=== PATIENT | female | born 1955 | race Two or more races ===

== ENCOUNTER 2020-07-03 15:36 | Outpatient (AMBR) | payer MEDICARE, MEDICAID, SELFPAY ==
--- NOTE | 2020-06-09 15:13 | ST.OIERPT ---
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 Kenney provided PMHx for pt. Per son, pt lives at home with him, an uncle and stepmother who is her full-time caregiver. Pt had brain aneurysm x3 in October of 2018. Pt has hx of receiving speech and physical therapy in the acute setting, SNF setting and outpatient setting. Pt's son reports pt stopped going to outpatient speech therapy because she became emotional . Pt's son reports pt typically speaks in one word phrases; family attempts to include her in family conversations at all times. Pt is dependent for ADLs. Pt was observed to initiate eye contact, pt demonstrated perseverated 1-2 word responses. Pt was cooperative throughout evaluation; she cried briefly x3, was quickly consoled by son and this therapist. Pt's son reports this is typical for pt; she cries and laughs easily. Pt's son provided information on pt's daily routines. Objective: Assessment Administered: Subtests of the Cognitive Linguistic Quick Test (CLQT) Raw Scores: Personal Facts: 0/8 Confrontation Namin/10 Story Retellin18 Auditory Comprehension: 0/10 Generative Namin/9 Cognitive Domain Score for Language: 0 Assessment: Evaluation revealed pt to present with severe aphasia characterized by deficits in receptive and expressive language. Pt's scores on the language subtests of the Cognitive Linguistic Quick Test were in the severe range. Pt's past medical history, scores on standardized assessment, and informal assessment reveal pt would benefit from speech language therapy to improve her communicative abilites required to participate in ADLs and improve safety. Short Term and Provider Network Analyst Goals Retirement Goals: Pt will use functional communication in 75% of situations when provided with customized cues and strategies by trained caregivers in order to participate in activities of daily living. Short Term Goals: 1. Pt will identify via pointing common household objects at 80% accuracy given maximum verbal and frequent maximum phonemic cues with speech therapy and family/caregiver education. 2. Pt will name common household objects at 80% accuracy given maximum verbal and visual cues with speech therapy and family/caregiver education. 3. Pt will answer yes/no questions related to safety/ADLs with 80% accuracy given max verbal and visual cues with speech therapy and family/caregiver education. 4. Pt will follow 1-step directions during functional activities with 80% accuracy given maximum verbal and visual cues with speech therapy and family/caregiver education. Plan Treatment Plan: [id number] Treatment of speech, language, voice, communication, and/or auditory processing disorder; individual Frequency and Duration: 2x/week for 5 weeks Certification Dates: 06/09/20-09/06/20
--- NOTE | 2020-06-24 16:29 | ST.ODAYNRPT ---
Office Procedures ST Evals/Treatments Date of Service ST Date of Service: 06/09/[address] Speech Eval of Prod w/Language Eval: Yes ST Outpatient Daily Note OP Daily Note Pediatric or Adult Patient: Adult PT >13 Visit Reasons: speech language defecit Outpatient Speech Therapy Treatment Date: 06/24/20 Short term goals/Tx given 1. Pt will identify via pointing common household objects at 80% accuracy given maximum verbal and frequent maximum phonemic cues with speech therapy and family/caregiver education. 2. Pt will name common household objects at 80% accuracy given maximum verbal and visual cues with speech therapy and family/caregiver education. 3. Pt will answer yes/no questions related to safety/ADLs with 80% accuracy given max verbal and visual cues with speech therapy and family/caregiver education. 4. Pt will follow 1-step directions during functional activities with 80% accuracy given maximum verbal and visual cues with speech therapy and family/caregiver education.
--- NOTE | 2020-06-24 16:45 | STNOTE_ITS ---
Office Procedures ST Evals/Treatments Date of Service ST Date of Service: 06/09/[address] Speech Eval of Prod w/Language Eval: Yes ST Procedures Date of Service Date of Service: 06/24/20 Treatments Speech Therapy Individual: Yes Outpatient Daily Note OP Daily Note Pediatric or Adult Patient: Adult PT >13 Visit Reasons: speech language defecit Outpatient Speech Therapy Treatment Date: 06/24/20 Subjective: Pt accompanied by son and stepmother, both of whom are pt's caregivers. Session was used to review goals, plan of care and build rapport. Pt was cooperative throughout session. Pt's son requested that next session be canceled d/t another appointment; plan to resume 2x/week tx Tuesday/ next week. FRONT OFFICE SPECIALIST provided handout on education regarding aphasia and HTP to practice identification of household objects at home to generalize skills in tx to home tasks (like getting dressed, eating, etc.). Objective: STG1: Pt identified photos of common household objects at 47% accuracy in a field of two given mod-max visual/gestural cues, phonemic cues and modeling. Pt required ~5 seconds to respond. Assessment: Pt demonstrates benefit from hierarchical cues to aid identification of photos of common household objects including visual/gestural cues, phonemic cues, and modeling. Pt benefited from verbal praise. Plan: Continue POC. ST Start of Care Date: 06/09/20 Short term goals/Tx given 1. Pt will identify via pointing common household objects at 80% accuracy given maximum verbal and frequent maximum phonemic cues with speech therapy and family/caregiver education. 2. Pt will name common household objects at 80% accuracy given maximum verbal and visual cues with speech therapy and family/caregiver education. 3. Pt will answer yes/no questions related to safety/ADLs with 80% accuracy given max verbal and visual cues with speech therapy and family/caregiver education. 4. Pt will follow 1-step directions during functional activities with 80% accuracy given maximum verbal and visual cues with speech therapy and family/caregiver education. Treatment Time Treatment Time (minutes): 45 minutes
--- NOTE | 2020-07-01 15:20 | ST.ODAYNRPT ---
Office Procedures ST Evals/Treatments Date of Service ST Date of Service: 06/09/[address] Speech Eval of Prod w/Language Eval: Yes ST Evals/Treatments Date of Service ST Date of Service: 07/01/[address] Speech Therapy Individual: Yes ST Procedures Date of Service ST Date of Service: 06/24/[address] Speech Therapy Individual: Yes ST Outpatient Daily Note OP Daily Note Pediatric or Adult Patient: Adult PT >13 Visit Reasons: speech language defecit Outpatient Speech Therapy Treatment Date: 06/24/20 Subjective: Pt accompanied by son and caregiver. Pt cooperative throughout session. Pt and family were given instructions, demonstration and photo book used in session and recommendation to use grocery store ads as part of home treatment plan to aid in comprehension and expression of language. Objective: STG1: Pt identified photos of household objects with 53% accuracy in a field of 2 given verbal, gestural and phonemic cues. STG2: Pt named photos of household objects with 42% accuracy given verbal, phonemic cues. Assessment: Pt demonstrates improvement in comprehension as evidenced by increase in accuracy in identification of photos of household objects. Pt demonstrates benefit from hierarchical cues to aid identification and naming of photos of common household objects including visual/gestural cues, phonemic cues, and modeling. Pt benefited from verbal praise. Plan: Continue POC. ST Start of Care Date: 06/09/20 Short term goals/Tx given 1. Pt will identify via pointing common household objects at 80% accuracy given maximum verbal and frequent maximum phonemic cues with speech therapy and family/caregiver education. 2. Pt will name common household objects at 80% accuracy given maximum verbal and visual cues with speech therapy and family/caregiver education. 3. Pt will answer yes/no questions related to safety/ADLs with 80% accuracy given max verbal and visual cues with speech therapy and family/caregiver education. 4. Pt will follow 1-step directions during functional activities with 80% accuracy given maximum verbal and visual cues with speech therapy and family/caregiver education. Treatment Time Treatment Time (minutes): 45 minutes
--- NOTE | 2020-07-03 15:51 | STNOTE_ITS ---
Office Procedures ST Evals/Treatments Date of Service ST Date of Service: 06/09/[address] Speech Eval of Prod w/Language Eval: Yes ST Evals/Treatments Date of Service ST Date of Service: 07/01/[address] Speech Therapy Individual: Yes ST Evals/Treatments Date of Service ST Date of Service: 07/03/[address] Speech Therapy Individual: Yes ST Procedures Date of Service ST Date of Service: 06/24/[address] Speech Therapy Individual: Yes ST Outpatient Daily Note OP Daily Note Pediatric or Adult Patient: Adult PT >13 Visit Reasons: speech language defecit Outpatient Speech Therapy Treatment Date: 07/03/20 Subjective: Pt accompanied by son and stepmother. Pt was cooperative throughout session. Pt's family members report follow through with HTP with photos given last session. FOOD SCIENTIST requested family bring coupons from a restaurant that pt likes to eat at so that may be used as functional stimuli to target receptive and expressive language targets. Objective: STG1: Pt identified objects in tx room given gestural and verbal cues. STG2: Pt named photos with 45% accuracy given verbal, visual, gestural cues and modeling. Pt named pictures in both Marshallese and [place] Korean. New stimuli included verbs in this session. Assessment: Pt continues to demonstrate benefit from verbal cues including semantic and phonemic cues. Pt benefit from gestural cues including pointing. Pt demonstrated a decrease in accuracy given new verb targets. Pt benefits from cues in Marshallese and [place] Korean; consistent with how she communicates at home. Plan: Continue POC; use functional stimuli (resturant coupons) to further target goals. ST Start of Care Date: 06/09/20 Short term goals/Tx given 1. Pt will identify via pointing common household objects at 80% accuracy given maximum verbal and frequent maximum phonemic cues with speech therapy and family/caregiver education. 2. Pt will name common household objects at 80% accuracy given maximum verbal and visual cues with speech therapy and family/caregiver education. 3. Pt will answer yes/no questions related to safety/ADLs with 80% accuracy given max verbal and visual cues with speech therapy and family/caregiver education. 4. Pt will follow 1-step directions during functional activities with 80% accuracy given maximum verbal and visual cues with speech therapy and family/caregiver education. Treatment Time Treatment Time (minutes): 45 minutes
== END 2020-07-06 23:59 | disposition home or self-care (01) ==
PROVIDERS: PCP Physician Assistant; Referring Provider Physician Assistant; Visit Provider Physician Assistant
DX: I67.1 Cerebral aneurysm, nonruptured (principal); R47.01 Aphasia; I69.328 Other speech and language deficits following cerebral infarction; Z72.89 Other problems related to lifestyle; M54.15 Radiculopathy, thoracolumbar region; M54.5 Low back pain
CPT/HCPCS: 92507; 92523

== ENCOUNTER 2020-07-29 15:48 | Outpatient (AMBR) | payer MEDICARE, MEDICAID, SELFPAY ==
--- NOTE | 2020-07-08 17:58 | STNOTE_ITS ---
Office Procedures ST Evals/Treatments Date of Service ST Date of Service: 07/10/[address] Speech Therapy Individual: Yes ST Outpatient Daily Note OP Daily Note Pediatric or Adult Patient: Adult PT >13 Visit Reasons: speech language defecit Outpatient Speech Therapy Treatment Date: 07/03/20 Subjective: Pt accompanied by son and step-mom. Pt cooperative throughout evaluation. Pt's family report follow-thorough with HTP recommendations. HOBBIES AND CRAFTS SALES REPRESENTATIVE requested that family bring in pt's ipad from home to incorporate more activities of daily living in tx sessions; they agreed. Objective: STG2: Pt named photos of household objects/body parts/ADL nouns with 53% accuracy given phonemic cues and visual cues. Pt demonstrated 0% accuracy given verbal cue ( what is this called ) and semantic cue (description of use of object). Stimuli used were photos against white background and functional menus brought in my pt's family. STG4: Pt followed one step directions with 60% accuracy given verbal and gestural cues. *HOBBIES AND CRAFTS SALES REPRESENTATIVE provided education to family regarding forms of cues. HOBBIES AND CRAFTS SALES REPRESENTATIVE explained importance of using prompt what is this called/what is the name of this? versus what is this? in order to acknowledge that the pt knows what the thing/ photo is, however it is a matter of finding and saying the word that she is looking for. Assessment: Pt demonstrated improvement in expressive language as evidenced by increase in accuracy in naming objects. Pt demonstrates the most benefit from phonemic cues to aid in word finding compared with semantic cues. Plan: Continue POC. ST Start of Care Date: 06/09/20 Treatment Time Treatment Time (minutes): [address] Evals/Treatments Date of Service ST Date of Service: 07/08/[address] Speech Therapy Individual: Yes
--- NOTE | 2020-07-10 16:19 | ST.ODAYNRPT ---
Office Procedures ST Evals/Treatments Date of Service ST Date of Service: 07/10/[address] Speech Therapy Individual: Yes ST Outpatient Daily Note OP Daily Note Pediatric or Adult Patient: Adult PT >13 Visit Reasons: speech language defecit Outpatient Speech Therapy Treatment Date: 07/03/20 Subjective: Pt accompanied by son. Pt and son brought in booklet with photos of foods taken from newspaper ads to use as stimuli in session and pt's own iPad. Pt's son reports follow through with home recommendations. Objective: STG2: Pt named photos of foods with 50% accuracy given phonemic cues and visual cues. Pt demonstrated 0% accuracy given verbal cue ( what is this called ). Pt repeated words given model x1 in 90% of opportunities. STG4: Pt followed one step directions with 60% accuracy given verbal and gestural cues. Ipad was used as stimuli i/e open ipad , push button PORTRAIT PHOTOGRAPHER provided education to pt and son regarding skill generalization versus memorization of targets in therapy; he verbalized understanding. PORTRAIT PHOTOGRAPHER provided education on how to adjust settings of ipad including making icons/text bigger and categorizing apps . Assessment: Pt continues to benefit from phonemic cues to produce target word in confrontational naming tasks. Pt's naming errors are characterized by both phonemic and semantic errors. Pt benefits from repetition and visual/gestural cues to follow directions. Plan: Continue with POC ST Start of Care Date: 06/09/20 Treatment Time Treatment Time (minutes): 45 minutes
--- NOTE | 2020-07-14 16:39 | STNOTE_ITS ---
Office Procedures ST Evals/Treatments Date of Service ST Date of Service: 07/14/[address] Speech Therapy Individual: Yes ST Evals/Treatments Date of Service ST Date of Service: 07/10/20 ST Treatments Speech Therapy Individual: Yes ST Outpatient Daily Note OP Daily Note Pediatric or Adult Patient: Adult PT >13 Visit Reasons: speech language defecit Outpatient Speech Therapy Treatment Date: 07/14/20 Subjective: Pt accompanied by son and stepmother. Pt was cooperative throughout session. Family members reports follow through with HTP. Pt's stepmother informed this therapist that it took her an hour to figure out what the pt wanted after asking for two of something by using a gesture (number two with her fingers). The pt was trying to ask for two tylenol; eventually took stepmother to the box where they keep medicines. This therapist suggested they keep the tylenol in that box too with the other medicines. Objective: Pt named photos of verbs with 50% accuracy given verbal and phonemic cues. Pt benefitted from visual cues and modeling in most attempts to repeat words. Pt followed basic one-step commands with 60% accuracy given verbal, visual and gestural cues. Assessment: Pt continues to present with naming deficits; errors are characteri zed by both semantic and phonemic paraphasias. Pt benefits from phonemic cues; demonstrates more benefit from semantic cues with verbs compared to nouns. Pt continues to demonstrate communication breakdowns at home, as described by her family members; they benefitted from education to provide some modifications to the environment. Plan: Continue poc, target safety questions next session. ST Start of Care Date: 06/09/20 Treatment Time Treatment Time (minutes): 45 minutes
--- NOTE | 2020-07-22 16:24 | ST.ODAYNRPT ---
Office Procedures ST Evals/Treatments Date of Service ST Date of Service: 07/14/[address] Speech Therapy Individual: Yes ST Evals/Treatments Date of Service ST Date of Service: 07/10/[address] Speech Therapy Individual: Yes ST Evals/Treatments Date of Service ST Date of Service: 07/22/[address] Speech Therapy Individual: Yes ST Outpatient Daily Note OP Daily Note Pediatric or Adult Patient: Adult PT >13 Visit Reasons: speech language defecit Outpatient Speech Therapy Treatment Date: 07/14/20 Subjective: Pt accompanied by caregiver, Radha and sister, Chandrika. Pt was cooperative throughout session. Radha reports follow-through with HTP, spoke at length regarding practicing one-step directions and naming pictures and objects during ADLs. COMMERCIAL FIELD INSPECTOR gave family worksheet to practice one-step directions and answered all questions. COMMERCIAL FIELD INSPECTOR reviewed goals with pt, caregiver and pt's sister. Objective: STG1: Pt identified photos of common objects (food, clothing, household objects) with 70% accuracy given mod verbal cues and gestural cues. STG2: Pt named photos of common objects (same stimuli used for STG1) with 67% accuracy given mod verbal cues. STG3: Pt answered 1/3 yes/no questions related to safety given min cues. STG4: Pt followed one-step questions with 60% accuracy given mod verbal and gestural cues. Assessment: Pt demonstrates improvement in receptive and expressive language skills as evidenced by increase in accuracy in identifying and naming photos of common objects. Pt benefits from phonemic cues to produce target word in confrontational naming tasks. Plan: Continue POC. ST Start of Care Date: 06/09/20 Treatment Time Treatment Time (minutes): 60 minutes
--- NOTE | 2020-07-24 16:11 | STNOTE_ITS ---
Office Procedures ST Evals/Treatments Date of Service ST Date of Service: 07/14/[address] Speech Therapy Individual: Yes ST Evals/Treatments Date of Service ST Date of Service: 07/10/[address] Speech Therapy Individual: Yes ST Evals/Treatments Date of Service ST Date of Service: 07/22/[address] Speech Therapy Individual: Yes ST Evals/Treatments Date of Service ST Date of Service: 07/24/[address] Speech Therapy Individual: Yes ST Outpatient Daily Note OP Daily Note Pediatric or Adult Patient: Adult PT >13 Visit Reasons: speech language defecit Outpatient Speech Therapy Treatment Date: 07/14/20 Subjective: Pt accompanied by sisterChandrika and caregiver Radha. Pt coope rative throughout session. OUTBOUND TELEMARKETING REPRESENTATIVE gave pt and family education regarding aphasia diagnosis, booklet from [employer] with information regarding tips communicating with a person with aphasia and OUTBOUND TELEMARKETING REPRESENTATIVE gave HTP. Goals and progress also reviewed with family. Objective: STG1:Pt identified common household objects, foods, clothing with 70% accuracy given visual/gestural and semantic cues. STG2: Pt named common household objects, foods, clothing with 50% accuracy given visual/gestural, semantic and phonemic cues. STG3: Pt followed one step directions during therapy session (give me card, sit down, look, repeat, etc.) with ~80% accuracy given visual/gestural and verbal cues. *Pt demonstrated some in tact automatic language: pt counted to ten, sang happy birthday and recited ~half of alphabet. Assessment: Pt continues to benefit from phonemic, semantic, and visual/gestural cues to aid in both receptive and expressive language tasks related to ADLs. Pt's family support contributes to pt's good response to tx. Pt benefits from verbal praise. Stimuli used in this session were photos on computer screen and photo cards placed on table in front of pt. Plan: Continue poc. ST Start of Care Date: 06/09/20 Treatment Time Treatment Time (minutes): 45 minutes
--- NOTE | 2020-07-29 16:27 | ST.ODAYNRPT ---
Office Procedures ST Evals/Treatments Date of Service ST Date of Service: 07/14/[address] Speech Therapy Individual: Yes ST Evals/Treatments Date of Service ST Date of Service: 07/10/[address] Speech Therapy Individual: Yes ST Evals/Treatments Date of Service ST Date of Service: 07/22/[address] Speech Therapy Individual: Yes ST Evals/Treatments Date of Service ST Date of Service: 07/24/[address] Speech Therapy Individual: Yes ST Evals/Treatments Date of Service ST Date of Service: 07/29/[address] Speech Therapy Individual: Yes ST Outpatient Daily Note OP Daily Note Pediatric or Adult Patient: Adult PT >13 Visit Reasons: speech language defecit Outpatient Speech Therapy Treatment Date: 07/14/20 Subjective: Pt accompanied by son, Kenney and caregiver, Radha. Pt was cooperative throughout session. Kenney and Radha report follow-through with home treatment recommendations. Kenney and Radha report they see improvement in pt's attempts at initiation of speech, improvement in identifying items to make choices, more attempts at repeating words and phrases. They also report that pt demonstrates improvement in spontaneous speech; they described a specific instance that happened today in which Kenney was driving and did not see people about to cross the street and Laly said stop! to warn him. Kenney and Radha report this is an improvement in her attention and expressive language. Objective: STG1: Pt identified photos of objects (food, household items, clothing) with 70% given mod verbal (semantic) cues. STG2: Pt named photos of objects (food, household items, clothing) with 50% accuracy given mod verbal cues and visual cues. STG3: Pt answered yes/no questions with 50% accuracy given mod verbal cues. STG4: Pt followed simple one-step directions with 60% accuracy given mod verbal cues. Assessment: Pt demonstrates improvement in both receptive and expressive language. Pt benefits from a verbal cues including semantic, phonemic cues. Pt also benefits from tactile cues to produce target words in confrontational naming tasks. Pt's family reports they see improvement in pt's language skills at home which has helped her increase her participation in socializing with family and improved her safety. Pt would benefit from continued speech therapy to address safety and quality of life. Plan: Request continued treatment from PCP. Start of Care Date: 06/09/20 Treatment Time Treatment Time (minutes): 60 minutes
--- NOTE | 2020-07-29 16:48 | STNOTE_ITS ---
Office Procedures ST Evals/Treatments Date of Service ST Date of Service: 07/14/[address] Speech Therapy Individual: Yes ST Evals/Treatments Date of Service ST Date of Service: 07/10/[address] Speech Therapy Individual: Yes ST Evals/Treatments Date of Service ST Date of Service: 07/22/[address] Speech Therapy Individual: Yes ST Evals/Treatments Date of Service ST Date of Service: 07/24/[address] Speech Therapy Individual: Yes ST Evals/Treatments Date of Service ST Date of Service: 07/29/[address] Speech Therapy Individual: Yes ST OP Progress/Discharge Note Patient Information Pediatric or Adult Patient: Adult PT >13 Visit Reasons: speech language defecit Medical Diagnosis: I72.9 Problem related to lifestyle; 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 Pt was cooperative throughout session. Chitra report follow-through with home treatment recommendations. Chitra report they see improvement in pt's attempts at initiation of speech, improvement in identifying items to make choices, more attempts at repeating words and phrases. They also report that pt demonstrates improvement in spontaneous speech; they described a specific inst ance that happened today in which Kenney was driving and did not see people about to cross the street and Laly said stop! to warn him. Kenney jonathan Radha report this is an improvement in her attention and expressive language. Objective: STG1: Pt identified photos of objects (food, household items, clothing) with 70% given mod verbal (semantic) cues. STG2: Pt named photos of objects (food, household items, clothing) with 50% accuracy given mod verbal cues and visual/tactile cues (tapping table with hand for each syllable to produce word). STG3: Pt answered yes/no questions with 50% accuracy given mod verbal cues. STG4: Pt followed simple one-step directions with 60% accuracy given mod verbal cues. Assessment: Pt demonstrates improvement in both receptive and expressive language as evidenced by increase in accuracy in identification of ADL objects, following directions, and in confrontational naming tasks. Pt benefits from a verbal cues including semantic, phonemic cues. Pt also benefits from tactile cues to produce target words in confrontational naming tasks. Pt's family rep orts they see improvement in pt's language skills at home which has helped her increase her participation in socializing with family and improved her safety. Pt's family report compliance with home treatment recomemendations and demonstrate consistent attendance to sessions. Pt would benefit from continued speech therapy to address safety and quality of life. Recommend 10 additional visits (2x/week for 5 weeks).
--- NOTE | 2020-09-24 16:43 | ST.DCSUMMARY ---
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 Evaluation and Other (speech treatment ) D/C Status: Increased expressive language (In context of confrontational naming tasks ) Assessment: Patient is:: Cooperative/Motivated and Requires encouragement Patient's progress toward establishing goals:: Fair Reason for Discharge:: Discharge to Rehab. (Pt approved for home health services ) Office Procedures ST Evals/Treatments Date of Service ST Date of Service: 07/14/[address] Speech Therapy Individual: Yes ST Evals/Treatments Date of Service ST Date of Service: 07/10/[address] Speech Therapy Individual: Yes ST Evals/Treatments Date of Service ST Date of Service: 07/22/[address] Speech Therapy Individual: Yes ST Evals/Treatments Date of Service ST Date of Service: 07/24/[address] Speech Therapy Individual: Yes ST Evals/Treatments Date of Service ST Date of Service: 07/29/[address] Speech Therapy Individual: Yes
== END 2020-08-06 23:59 | disposition home or self-care (01) ==
PROVIDERS: PCP Physician Assistant; Referring Provider Physician Assistant; Visit Provider Physician Assistant
DX: I69.328 Other speech and language deficits following cerebral infarction (principal); I69.320 Aphasia following cerebral infarction; M54.15 Radiculopathy, thoracolumbar region; M54.5 Low back pain
CPT/HCPCS: 92507

== ENCOUNTER 2024-04-07 14:34 | Emergency (ER) | payer MEDICARE, MEDICAID, SELFPAY ==
[2024-04-07 14:46] VITALS: BP 129/77; PULSE 82; RESP 18; TEMP 36.9; O2SAT 96; BMI 37.5
--- NOTE | 2024-04-07 14:52 | PD.EDRME ---
Rapid Medical Screening Exam E Arrival date/time: 04/07/24 14:34 68-year-old female with past medical history of hypertension presents emergency department complaining of dysuria and subjective fevers. Chief Complaint: Urogenital-Female Vital signs: Vital Signs Temperature 98.5 F 04/07/24 14:46 Pulse Rate 82 04/07/24 14:46 Respiratory Rate 18 04/07/24 14:46 Blood Pressure 129/77 04/07/24 14:46 Pulse Oximetry (%) 96 04/07/24 14:46 Oxygen Delivery Method Room Air 04/07/24 14:46 Vital signs reviewed by provider: Yes
[2024-04-07 15:36] LABS: Collection Type, Urine Clean Catch
[2024-04-07 16:10] LABS: Bacteria,Urine Rare; Bilirubin,Urine Negative (Negative); Blood,Urine Negative (Negative); Clarity,Urine Clear (Clear/Hazy); Color,Urine Lt-Yellow (Lt Yel-Yel); Culture Indicated,Urine Not Indicated; Glucose, Urine Negative (Negative); Ketones,Urine Negative (Negative); Leukocyte Esterase,Urine Negative (Negative); Nitrite,Urine Negative (Negative); Protein,Urine Negative (Neg - Trace); RBC,Urine 3 /hpf (0-3); Specific Gravity,Urine 1.016 (1.001-1.035); Squamous Epithelial Cell,Urine 5 /hpf (0-5); Urobilinogen,Urine Negative mg/dL (0.0-1.0); WBC,Urine 3 /hpf (0-5)
[2024-04-07 16:21] LABS: Basophils # (Auto) 0.1 Thou/mm3 (0.0-0.2); Basophils % (Auto) 1 % (0-2.5); Eosinophils # (Auto) 0.1 Thou/mm3 (0.0-0.5); Eosinophils % (Auto) 1 % (0-10); Hematocrit 39.8 % (36.0-46.0); Hemoglobin 12.6 g/dL (12.0-16.0); Immature Granulocytes % (Auto) 0 % (0-0); Immature Granulocytes Auto 0.02 Thou/mm3 (0.00-0.00); Lymphocytes # (Auto) 2.2 Thou/mm3 (1.0-4.8); Lymphocytes % (Auto) 31 % (10-50); Mean Corpuscular HGB Conc 31.7 g/dl (31.0-37.0); Mean Corpuscular Hemoglobin 26.7 pg (25.0-35.0); Mean Corpuscular Volume 84 fL (80-100); Monocytes # (Auto) 0.4 Thou/mm3 (0.0-0.8); Monocytes % (Auto) 6 % (0-12); Neutrophils # (Auto) 4.4 Thou/mm3 (1.8-7.7); Neutrophils % (Auto) 62 % (37-80); Nucleated Red Blood Cell % 0 /100 WBC (0); Platelet Count 409 Thou/mm3 (140-440); RDW Standard Deviation 43.5 fL (36.4-46.3); Red Blood Count 4.72 Miln/mm3 (4.00-5.20); White Blood Count 7.2 Thou/mm3 (3.6-11.0)
[2024-04-07 16:40] LABS: Alanine Aminotransferase 48 U/L (10-49); Albumin/Globulin Ratio 1.9 (1.2-2.2); Alkaline Phosphatase 137 U/L (46-116); Anion Gap 10 (7-16); Aspartate Amino Transferase 73 U/L (0-34); BUN/Creatinine Ratio 23 Ratio (12-20); Bilirubin,Total 0.6 mg/dL (0.3-1.2); Blood Urea Nitrogen 14 mg/dL (9-23); Calcium 10.4 mg/dL (8.3-10.6); Calcium (Corrected) 10.4 mg/dL (8.5-10.1); Carbon Dioxide 22.6 mMol/L (20.0-31.0); Chloride 105 mMol/L (98-107); Creatinine (Component) 0.6 mg/dL (0.6-1.3); Globulin 2.6 gm/dL (2.3-3.5); Glucose 122 mg/dL (74-106); Osmolality,Calculated 277 (275-295); Potassium 4.4 mMol/L (3.4-5.1); Sodium 138 mMol/L (136-145); Total Protein 7.6 gm/dL (5.7-8.2); eGFR > 60 See Note
[2024-04-07 19:25] VITALS: BP 143/81; PULSE 91; RESP 16; TEMP 37.1; O2SAT 97
--- NOTE | 2024-04-07 19:29 | EDNOTE_ITS ---
<Statement entered by Emeli Antonio MD - 04/07/24 22:01> As co-signing physician, I was present and available for consult prn. I concur with the plan and care as documented by the midlevel provider. ED Female Urogenital RME/HPI General Chief complaint: Urogenital-Female Stated complaint: UTI SYMPTOMS X YESTERDAY; FEVER PAIN Time Seen by Provider: 04/07/24 19:22 Arrival date/time: 04/07/24 14:34 RME / HPI RME / HPI Narrative: 68-year-old female with past medical history of hypertension presents emergency department complaining of dysuria and subjective fevers. Onset of symptoms since yesterday severity of symptoms mild. On my initial evaluation patient is afebrile. And denies any dysuria or discomfort in the pelvic area. Denies any cough denies any abdominal pain also. Related Data Home Medications ?Medication ?Instructions ?Recorded ?Confirmed cholecalciferol (vitamin D3) 125 125 mcg PO QDAY 10/14/21 03/07/24 mcg (5,000 unit) tablet (Vitamin D3) gemfibrozil 600 mg tablet 600 mg PO BID 10/14/21 03/07/24 lisinopril 20 mg tablet 20 mg PO QDAY 10/14/21 03/07/24 pantoprazole 40 mg tablet,delayed 40 mg PO QDAY 10/14/21 03/07/24 release tramadol 50 mg tablet 50 mg PO BID PRN Pain 10/14/21 03/07/24 docusate sodium 100 mg capsule 100 mg PO PRN PRN Constipation 04/20/23 03/07/24 albuterol sulfate 90 mcg/actuation 1 inh inhalation QID PRN Shortness 03/06/24 03/07/24 aerosol inhaler Of Breath Or Wheezing melatonin 5 mg tablet 5 mg PO HS PRN Insomnia 03/06/24 03/07/24 naproxen 500 mg tablet (Naprosyn) 500 mg PO BID PRN Pain 03/06/24 03/07/24 Previous Rx's ?Medication ?Instructions ?Recorded ibuprofen 600 mg tablet 600 mg PO Q6H PRN pain #30 tabs 03/07/24 oxycodone-acetaminophen 5 mg-325 1 tab PO Q6H PRN pain #30 tabs 03/07/24 mg tablet (Percocet) ciprofloxacin HCl 500 mg tablet 500 mg PO BID #20 tabs 03/11/24 (Cipro) hydrocortisone 2.5 % topical cream 1 applic TN QDAY PRN pain #30 grams 03/20/24 with perineal applicator (Procto-Med HC) oxycodone-acetaminophen 5 mg-325 1 tab PO Q6H PRN pain #30 tabs 03/20/24 mg tablet (Percocet) Allergies Allergy/AdvReac Type Severity Reaction Status Date / Time ceftriaxone Allergy Severe RASH,JITTER Verified 04/07/24 14:36 Y Cephalosporins Allergy Severe Rash Verified 04/07/24 14:36 erythromycin base Allergy Severe Rash Verified 04/07/24 14:36 levofloxacin Allergy Severe Anaphylaxis Verified 04/07/24 14:36 lovastatin Allergy Severe WHEEZING Verified 04/07/24 14:36 Penicillins Allergy Severe Swelling Verified 04/07/24 14:36 of Lip/Tongue/Throat shellfish derived Allergy Severe Swelling Verified 04/07/24 14:36 of Lip/Tongue/Throat Sulfa (Sulfonamide Allergy Severe SWELLING Verified 04/07/24 14:36 Antibiotics) TONGUE Tetracyclines Allergy Severe RASH,SWELLING Verified 04/07/24 14:36 THROAT & TONGUE trimethoprim Allergy Severe SWELLING Verified 04/07/24 14:36 TONGUE RASH LEVAQUIN Allergy Uncoded 04/07/24 14:36 Review of Systems Review of Systems Narrative Review of Systems: Review of system reviewed and within normal limits except mentioned in HPI ED Exam Narrative Physical exam: VITAL SIGNS: Reviewed. GENERAL APPEARANCE: Alert and interactive, follows commands, no acute distress, HEAD AND FACE: Non-traumatic. ENT: PERRL, pink conjunctivitis, eyelid no trauma, Mucous membrane moist. NECK: Supple, nontender, no nuchal rigidity. CHEST: No tenderness, no crepitus, no paradoxical movement, no retractions. LUNGS: Clear, well ventilated, symmetric, no rales, no wheezing, no ronchi, no stridor, good breath sounds bilaterally. HEART: Regular rate, regular rhythm, no murmur, no gallops. ABDOMEN: Soft, positive bowel sounds, nondistended, no guarding, nontender, no rebound, no masses, RECTAL: Deferred. GENITAL: Deferred. NEUROLOGICAL: Gross motor function intact sensory function intact, Appropriate for age. MUSCULOSKELETAL: low back nontender, full range of motion. EXTREMITIES: Nontender, full range of motion. SKIN: Color pink, dry, no rash, no lacerations, no abrasions, no contusions. LYMPHATICS: Deferred. Course Quality Measures none Orders Category Date Time Status CBC Stat Lab 04/07/24 15:52 Completed CMP [Comprehensive Metabolic Panel] Stat Lab 04/07/24 15:52 Completed Urinalysis, C/S if Indicated Stat Lab 04/07/24 15:25 Completed Vital Signs Vital signs: Vital Signs Temperature 98.5 F 04/07/24 14:46 Pulse Rate 82 04/07/24 14:46 Respiratory Rate 18 04/07/24 14:46 Blood Pressure 129/77 04/07/24 14:46 Pulse Oximetry (%) 96 04/07/24 14:46 Oxygen Delivery Method Room Air 04/07/24 14:46 Urogenital - Female MDM Narrative MDM Narrative:: 68-year-old female with past medical history of hypertension presents emergency department complaining of dysuria and subjective fevers. Onset of symptoms since yesterday severity of symptoms mild. On my initial evaluation patient is afebrile. And denies any dysuria or discomfort in the pelvic area. Denies any cough denies any abdominal pain also. Laboratory workup all came back unremarkable no UTI noted. Labs are normal. Patient data External records reviewed:: None Clinical information provided by:: none Social determinants that could affect healthcare access:: none Patient has the following chronic illnesses:: Dementia How is presenting disease/condition affected by chronic disease/condition?: uneffected by Evaluation data The following diagnostics were reviewed and interpreted by me:: lab results Lab and/or radiology exams considered but not ordered:: None Interpretation Summary: Laboratory workup came back unremarkable. No UTI Medications / Prescriptions Medications or Prescriptions considered but not ordered:: None Medication administrations:: None Consultations Consultation(s) initiated? (list below): No Diagnosis Urogenital Female Differential Diagnosis: urinary tract infection, vaginitis, cystitis and other (Dysuria) Most likely diagnosis given after review of the tests above:: Dysuria Admission Indicated Admission indicated?: not indicated Explain why admission is indicated or not indicated:: Stable Admission Request Was there a request for admission?: No Disposition Plan Disposition Plan: Discharge Discharge Attestation Discharge Attestation: The patient and all family members were given an opportunity to ask questions and understood the discharge instructions. Discharge instructions specifically effects, indications for sooner follow up or return to the emergency department, and the expected course of current diagnosis. Patient condition: Stable Discharge Plan Plan Patient Disposition: HOME (Self Care) Disposition Comment: stable Prescriptions/Referrals Prescriptions/Med Rec: No Action lisinopril 20 mg Tablet 20 mg PO QDAY tramadol 50 mg tablet 50 mg PO BID PRN (Reason: Pain) Hold Instructions: Resume on 12/17/22. Patient Comments: TAKE ONE TABLET BY MOUTH TWICE DAILY NEEDED FOR PAIN gemfibrozil 600 mg Tablet 600 mg PO BID pantoprazole 40 mg Tablet,Delayed Release (Dr/Ec) 40 mg PO QDAY cholecalciferol (vitamin D3) [Vitamin D3] 125 mcg (5,000 unit) Tablet 125 mcg PO QDAY ciprofloxacin HCl [Cipro] 500 mg tablet 500 mg PO BID Qty: 20 0RF Rx Instructions: Patient has taken this patient has not had allergic reaction to it in the past. oxycodone-acetaminophen [Percocet] 5-325 mg tablet 1 tab PO Q6H MDD 6 tabs PRN (Reason: pain) Qty: 30 0RF hydrocortisone [Procto-Med HC] 2.5 % cream with perineal applicator 1 applic TN QDAY PRN (Reason: pain) Qty: 30 0RF docusate sodium 100 mg capsule 100 mg PO PRN PRN (Reason: Constipation) Patient Comments: TAKE ONE CAPSULE BY MOUTH TWICE DAILY FOR CONSTIPATION albuterol sulfate 90 mcg/actuation Hfa Aerosol Inhaler 1 inh INHALATION QID PRN (Reason: Shortness Of Breath Or Wheezing) naproxen [Naprosyn] 500 mg Tablet 500 mg PO BID PRN (Reason: Pain) melatonin 5 mg Tablet 5 mg PO HS PRN (Reason: Insomnia) oxycodone-acetaminophen [Percocet] 5-325 mg tablet 1 tab PO Q6H MDD 6 tabs PRN (Reason: pain) Qty: 30 0RF ibuprofen 600 mg tablet 600 mg PO Q6H PRN (Reason: pain) Qty: 30 0RF Referrals: Ophelia Chaidez PA-C [Primary Care Provider] - In 1 week Problem List Clinical Impression: Dysuria Patient/Caregiver Discharge Instructions Discharge Activity: activity as tolerated Education Materials: ED Dysuria, Uncertain Cause (Adult) Additional Instructions: Thank you for the opportunity for serving you today. You are stable for discharged . You are advised to: Follow-up with your PCP in 1 to 2 days Return to ED for worsening of symptoms Increase oral fluids Avoid drinking sodas Print Language: Tamazight Stand Alone Forms: Alexandra Award Info., Patient Portal Info Letter PA/REMOTE SENSING SCIENTIST Supervising Physician PA/REMOTE SENSING SCIENTIST Supervising Physician: MD Paco
== END 2024-04-07 19:45 | disposition home or self-care (01) ==
PROVIDERS: Emergency Provider Emergency Medicine; PCP Physician Assistant
DX: R30.0 Dysuria (principal); R50.9 Fever, unspecified; I10 Essential (primary) hypertension
CPT/HCPCS: 36415; 80053; 81001; 85025; 99283

== ENCOUNTER 2024-04-09 15:10 | Outpatient (AMB) | payer MEDICARE, MEDICAID, SELFPAY ==
[2024-04-09 15:19] VITALS: BP 131/82; PULSE 100; RESP 18; TEMP 35.4; O2SAT 95; BMI 36.9
--- NOTE | 2024-04-09 15:19 | GSCOFFNT_ITS ---
Vital Signs - [facility] 04/09/24 15:19 Height 1.7 m Height Method Stated Weight 106.764 kg Weight Measurement Method Standing Scale BMI 36.9 BP 131/82 H Blood Pressure Source Automatic Cuff Blood Pressure Location Left Upper Arm Position Sitting Respiration 18 Pulse 100 Pulse Source Monitor Temp 95.8 F L Temp Source Temporal Artery Scan Pulse Oximetry (%) 95 Oxygen Delivery Method Room Air Med/Allergies Allergies & Medications Allergies ceftriaxone Allergy (Severe, Verified 04/09/24 15:20) RASH,JITTERY Cephalosporins Allergy (Severe, Verified 04/09/24 15:20) Rash erythromycin base Allergy (Severe, Verified 04/09/24 15:20) Rash levofloxacin Allergy (Severe, Verified 04/09/24 15:20) Anaphylaxis lovastatin Allergy (Severe, Verified 04/09/24 15:20) WHEEZING Penicillins Allergy (Severe, Verified 04/09/24 15:20) Swelling of Lip/Tongue/Throat shellfish derived Allergy (Severe, Verified 04/09/24 15:20) Swelling of Lip/Tongue/Throat Sulfa (Sulfonamide Antibiotics) Allergy (Severe, Verified 04/09/24 15:20) SWELLING TONGUE Tetracyclines Allergy (Severe, Verified 04/09/24 15:20) RASH,SWELLING THROAT & TONGUE trimethoprim Allergy (Severe, Verified 04/09/24 15:20) SWELLING TONGUE RASH LEVAQUIN Allergy (Uncoded 04/09/24 15:20) Medication Reconciliation cholecalciferol (vitamin D3) 125 mcg (5,000 unit) tablet (Vitamin D3) 125 mcg PO QDAY 10/14/21 [History Confirmed 04/09/24] gemfibrozil 600 mg tablet 600 mg PO BID 10/14/21 [History Confirmed 04/09/24] lisinopril 20 mg tablet 20 mg PO QDAY 10/14/21 [History Confirmed 04/09/24] pantoprazole 40 mg tablet,delayed release 40 mg PO QDAY 10/14/21 [History Confirmed 04/09/24] tramadol 50 mg tablet 50 mg PO BID PRN Pain 10/14/21 [History Confirmed 04/09/24] docusate sodium 100 mg capsule 100 mg PO PRN PRN Constipation 04/20/23 [History Confirmed 04/09/24] albuterol sulfate 90 mcg/actuation aerosol inhaler 1 inh inhalation QID PRN Shortness Of Breath Or Wheezing 03/06/24 [History Confirmed 04/09/24] melatonin 5 mg tablet 5 mg PO HS PRN Insomnia 03/06/24 [History Confirmed 04/09/24] naproxen 500 mg tablet (Naprosyn) 500 mg PO BID PRN Pain 03/06/24 [History Confirmed 04/09/24] ibuprofen 600 mg tablet 600 mg PO Q6H PRN pain #30 tabs 03/07/24 [Rx Confirmed 04/09/24] oxycodone-acetaminophen 5 mg-325 mg tablet (Percocet) 1 tab PO Q6H PRN pain #30 tabs 03/07/24 [Rx Confirmed 04/09/24] ciprofloxacin HCl 500 mg tablet (Cipro) 500 mg PO BID #20 tabs 03/11/24 [Rx Confirmed 04/09/24] hydrocortisone 2.5 % topical cream with perineal applicator (Procto-Med HC) 1 applic RI QDAY PRN pain #30 grams 03/20/24 [Rx Confirmed 04/09/24] oxycodone-acetaminophen 5 mg-325 mg tablet (Percocet) 1 tab PO Q6H PRN pain #30 tabs 03/20/24 [Rx Confirmed 04/09/24] hydrocortisone 2.5 % topical cream with perineal applicator 1 applic RI QD-BID PRN hemorrhoids #30 grams 04/09/24 [Rx] MA Intake Visit Data Collection New Patient or Established: Established Patient (seen at [facility] within 3 years) Seen by Clinical Staff ONLY (RN/MA): No Reason for Visit:: FOLLOW UP Pain Present Currently: No 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: No PCP or OBGYN visit in last 3 months: Yes Hx Now: No Do You Feel Safe at Home: Yes Authorities Contacted: N/A Smoking Status Smoking Status: Never smoker Immunization / Flu Flu Vaccine in the Last 12 Months: No Flu Vaccine Exclusion Criteria: No Exclusion Criteria Past Medical History Past Medical History NEUROLOGIC: Positive Neurological Disorders (Sees Dr Fernandez), Cerebrovascular Accident (from aneurysm, has aphasia) and Subdural Hematoma (aneurysim x3, 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); Negative Seizures CARDIAC: Positive Atherosclerotic Heart Disease, Hypercholesterolemia, Aneurysm (brain x3 sites) and Hypertension; Negative Cardiac Disorders or Congestive Heart Failure RESPIRATORY: Negative Chronic Obstructive Pulmonary Disease (COPD), Asthma or Sleep Apnea GASTROINTESTINAL: Positive Gastrointestinal Disorders, Hemorrhoids and Obesity; Negative Liver Cancer or Pancreatic Cancer GENITOURINARY: Negative Genitourinary Disorders or Renal Disease REPRODUCTIVE: Positive Previous Pregnancies ENT: Negative Cataracts ENDOCRINE: Negative Endocrine Disorders, Diabetes Mellitus Type 1 or Diabetes Mellitus Type 2 HEMATOLOGIC: Negative Blood Disorders or Sickle Cell Disease OTHER HISTORY: Positive Hospitalization, Blood Transfusions, Chicken Pox and Measles; Negative Autoimmune Disease, Shingles, Falls, Blood Transfusion Reaction, Anesthesia Reactions, Mumps or Cancer Family History FAMILY HISTORY: Positive Family Cancer and Family Surgery; Negative Family Psychiatric Problems, Family Respiratory Disorders, Family Cardiac Disorders, Family Gastrointestinal Problems or Family Anesthesia Reaction Surgical History SURGICAL: Positive Cardiac Surgery, Carotid Endarterectomy (Bilateral) and Neurologic Surgery (ruptured brain aneurysm, has one clip and plate) Social History SMOKING STATUS: Smoking status: Never smoker ALCOHOL: Alcohol Intake: Never HOUSING: Housing: House LIVES WITH: Lives With: Family HPI HPI Narrative 68F with HTN, HLD, GERD, hx of cerebral aneurysms x4 with expressive aphasia referred for symptomatic hemorrhoids s/p D 03/07 here for planned follow up. Pt reports feeling well overall; she was having pain at first which oxycodone helped with but she has since stopped needing it. She is taking ibuprofen sometimes and denies any bleeding or itching. Her mother who cares for her states that she sometimes has to reduce hemorrhoidal tissue but that it is done easily. Pt denies any other complaints ROS Review of Systems Systems Reviewed: All systems reviewed, normal except as documented Objective/Exam General General Appearance: alert, cooperative and well groomed Resp Respiratory exam: Absent respiratory distress Assessment & Plan Diagnosis / Problem List (1) Hemorrhoids: Status: Acute Assessment & Plan: 68F with HTN, HLD, GERD, hx of cerebral aneurysms x4 with expressive aphasia referred for symptomatic hemorrhoids s/p D 03/07, recovering well Plan: Hydrocortisone PRN F/u in 6 weeks Advanced Care Planning Advance care planning discussed with:: patient Office Procedures GNS Level of Care Nursing/Assessment Patient Status: Established Patient Nursing Assessment/Reassesment: Medication Reconciliation, Update PMH in EMR and Vital Signs Coordination of Care: Complex Care and Chronic Disease 1-5, Consent,records obtained, informed consent, Education Simp Pt/Fam, Results/Orders obtained and Staff clarify orders Established Patient Charge Established Patient Point Assignment: 90 Established Patient Point Charge: EP Level 3 (80-115) Patient Portal Questionaires Social History Living Situation History Housing: House Housing Other:: pt is alert/oriented Tobacco History Smoking Status: Never smoker Alcohol History Alcohol Intake: Never Domestic Abuse History Do You Feel Safe at Home: Yes Review of Systems Report any current symptoms Only answer those that you have currently: Past Medical History Past Medical History Have you ever been diagnosed with any of the following: Neurological Problems Cerebrovascular Accident (CVA): Yes (from aneurysm, has aphasia) Seizures: No Subdural Hematoma: Yes (aneurysim x3, 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) Cardiology Problems Atherosclerotic Heart Disease: Yes Hypercholesterolemia: Yes Aneurysm: Yes (brain x3 sites) Congestive Heart Failure: No Hypertension: Yes Respiratory Problems Chronic Obstructive Pulmonary Disease (COPD): No Asthma: No Sleep Apnea: No Stomache/Intestinal Problems Liver Cancer: No Pancreatic Cancer: No Hemorrhoids: Yes Obesity: Yes Genital/Urinary Problems Renal Disease: No Reproductive Problems Previous Pregnancies: Yes Head,Eye,Nose,Throat Problems Cataracts: No Endocrine Problems Diabetes Mellitus Type 1: No Diabetes Mellitus Type 2: No Blood Problems Sickle Cell Disease: No Other Problems Hospitalization: Yes Autoimmune Disease: No Shingles: No Falls: No Blood Transfusions: Yes Blood Transfusion Reaction: No Anesthesia Reactions: No Chicken Pox: Yes Measles: Yes Mumps: No Cancer: No Surgical History Carotid Endarterectomy: Yes (Bilateral)
== END 2024-04-09 15:29 | disposition home or self-care (01) ==
LOC: HODSRG 15:10
PROVIDERS: Supervising Provider Surgery; Visit Provider Surgery
DX: Z48.815 Encounter for surgical aftercare following surgery on the digestive system (principal)
CPT/HCPCS: 99213; G0463

== ENCOUNTER → 2024-04-10 | Outpatient (CLI) | payer MEDICARE, MEDICAID, SELFPAY ==
--- NOTE | 2024-04-10 16:00 | XR_ITS ---
Examination: CT chest, without intravenous contrast. Sagittal and coronal 2-D reconstructions. Exam date and time: April 10, 2024 1600 hours INDICATIONS: Asthma diagnosis, CT chest September 19, 2023 3 mm pulmonary nodule 5 mm pulmonary nodule 2 mm pulmonary nodule right upper lobe, 3 mm pulmonary nodule right lower lobe, 8mm pulmonary nodule left upper lobe CTDI:vol (mGy) 16.2 DLP: (mGycm) 544 Technique: Multiple 3.0 mm axial sections of the chest to been obtained. Bone and lung density settings are obtained. Sagittal and coronal 2-D reconstructions have been obtained. Low dose protocols were performed. One or more of the following dose reduction techniques were used; automated exposure control, adjustment of the mA and/or KV according to patient size, use of iterative reconstruction technique. Findings: Thoracic aortic calcification no aneurysmal dilatation Heavy calcification left main left anterior descending left circumflex coronary arteries No paratracheal tracheobronchial or bronchopulmonary adenopathy No change in bilateral pulmonary nodules Interval tiny air collection which may be a tiny pneumothorax lower left lung axial image 14, measuring 5 mm in thickness, clinical correlation advised Heavy mitral valvular calcification Fatty infiltration throughout the liver IMPRESSION: No definite change in bilateral pulmonary nodules Suspicious for minute pneumothorax in the left lower lung axial image 14, clinical correlation advised Recommend PA lateral chest follow-up
== END | disposition home or self-care (01) ==
PROVIDERS: PCP Physician Assistant; Referring Provider Internal Medicine; Visit Provider Internal Medicine
DX: R91.8 Other nonspecific abnormal finding of lung field (principal)
CPT/HCPCS: 71250

== ENCOUNTER → 2024-05-15 | Outpatient (CLI) | payer MEDICARE, MEDICAID, SELFPAY ==
--- NOTE | 2024-05-15 16:00 | XR_ITS ---
Examination: Transvaginal ultrasound of the pelvis, complete Technique: Transvaginal sonographic images pelvis performed using winn scale imaging Exam date and time: May 15, 2024 1602 hours Comparison November 18, 2023 INDICATIONS: Calcified mass posterior to the uterus 16 x 13 x 19 mm consistent with dermoid tumor on ultrasound study November 18, 2023, history pelvic pain FINDINGS: Uterus 6.5 x 2.7 x 3.8 cm Posterior to the uterus again noted hyperechoic mass with shadowing 2.4 x 1.9 x 2.4 cm Endometrial stripe 0.4 cm Right ovary 2.0 x 1.2 x 1.6 cm Hyperechoic solid mass or shadowing 2.0 x 1.2 x 1.6 cm Left ovary obscured by bowel gas IMPRESSION: 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
== END | disposition home or self-care (01) ==
LOC: CDIM 15:36
PROVIDERS: PCP Obstetrics & Gynecology; Referring Provider Obstetrics & Gynecology; Visit Provider Obstetrics & Gynecology
DX: R19.00 Intra-abdominal and pelvic swelling, mass and lump, unspecified site (principal)
CPT/HCPCS: 76830

== ENCOUNTER → 2024-05-21 | Outpatient (CLI) | payer MEDICARE, MEDICAID, SELFPAY ==
--- NOTE | 2024-05-21 17:01 | XR_ITS ---
Examination: PA lateral chest 2 views TECHNIQUE: Upright AP lateral chest 2 views Exam date time: May 21, 2024 1716 hours INDICATIONS: Asthma attack today FINDINGS: Normal heart size Moderate hyperexpansion with increased AP dimension chest No pneumonia or pulmonary edema Prominent osteopenia with chronic osteoporotic compressions mid dorsal vertebral bodies IMPRESSION: Moderate hyperexpansion No lobar pneumonia
== END | disposition home or self-care (01) ==
PROVIDERS: PCP Physician Assistant; Referring Provider Internal Medicine; Visit Provider Internal Medicine
DX: J98.4 Other disorders of lung (principal); R05.3 Chronic cough
CPT/HCPCS: 71046

== ENCOUNTER 2024-05-28 14:00 | Outpatient (AMB) | payer MEDICARE, MEDICAID, SELFPAY ==
--- NOTE | 2024-05-28 14:04 | GSCOFFNT_ITS ---
Vital Signs - [facility] 05/28/24 14:04 Comment TELEMED VISIT Med/Allergies Allergies & Medications Allergies ceftriaxone Allergy (Severe, Verified 05/28/24 14:04) RASH,JITTERY Cephalosporins Allergy (Severe, Verified 05/28/24 14:04) Rash erythromycin base Allergy (Severe, Verified 05/28/24 14:04) Rash levofloxacin Allergy (Severe, Verified 05/28/24 14:04) Anaphylaxis lovastatin Allergy (Severe, Verified 05/28/24 14:04) WHEEZING Penicillins Allergy (Severe, Verified 05/28/24 14:04) Swelling of Lip/Tongue/Throat shellfish derived Allergy (Severe, Verified 05/28/24 14:04) Swelling of Lip/Tongue/Throat Sulfa (Sulfonamide Antibiotics) Allergy (Severe, Verified 05/28/24 14:04) SWELLING TONGUE Tetracyclines Allergy (Severe, Verified 05/28/24 14:04) RASH,SWELLING THROAT & TONGUE trimethoprim Allergy (Severe, Verified 05/28/24 14:04) SWELLING TONGUE RASH LEVAQUIN Allergy (Uncoded 05/28/24 14:04) Medication Reconciliation cholecalciferol (vitamin D3) 125 mcg (5,000 unit) tablet (Vitamin D3) 125 mcg PO QDAY 10/14/21 [History Confirmed 05/28/24] gemfibrozil 600 mg tablet 600 mg PO BID 10/14/21 [History Confirmed 05/28/24] lisinopril 20 mg tablet 20 mg PO QDAY 10/14/21 [History Confirmed 05/28/24] pantoprazole 40 mg tablet,delayed release 40 mg PO QDAY 10/14/21 [History Confirmed 05/28/24] tramadol 50 mg tablet 50 mg PO BID PRN Pain 10/14/21 [History Confirmed 05/28/24] docusate sodium 100 mg capsule 100 mg PO PRN PRN Constipation 04/20/23 [History Confirmed 05/28/24] albuterol sulfate 90 mcg/actuation aerosol inhaler 1 inh inhalation QID PRN Shortness Of Breath Or Wheezing 03/06/24 [History Confirmed 05/28/24] melatonin 5 mg tablet 5 mg PO HS PRN Insomnia 03/06/24 [History Confirmed 05/28/24] naproxen 500 mg tablet (Naprosyn) 500 mg PO BID PRN Pain 03/06/24 [History Confirmed 05/28/24] ibuprofen 600 mg tablet 600 mg PO Q6H PRN pain #30 tabs 03/07/24 [Rx Confirmed 05/28/24] oxycodone-acetaminophen 5 mg-325 mg tablet (Percocet) 1 tab PO Q6H PRN pain #30 tabs 03/07/24 [Rx Confirmed 05/28/24] ciprofloxacin HCl 500 mg tablet (Cipro) 500 mg PO BID #20 tabs 03/11/24 [Rx Confirmed 05/28/24] hydrocortisone 2.5 % topical cream with perineal applicator (Procto-Med HC) 1 applic NV QDAY PRN pain #30 grams 03/20/24 [Rx Confirmed 05/28/24] oxycodone-acetaminophen 5 mg-325 mg tablet (Percocet) 1 tab PO Q6H PRN pain #30 tabs 03/20/24 [Rx Confirmed 05/28/24] hydrocortisone 2.5 % topical cream with perineal applicator 1 applic NV QD-BID PRN hemorrhoids #30 grams 04/09/24 [Rx Confirmed 05/28/24] hydrocortisone acetate 25 mg rectal suppository (Anusol-HC) 25 mg NV QDAY #12 ea 04/12/24 [Rx Confirmed 05/28/24] MA Intake Visit Data Collection New Patient or Established: Established Patient (seen at [facility] within 3 years) Seen by Clinical Staff ONLY (RN/MA): No Pain Present Currently: No Enhanced Environmental Operator Required: No PCP or OBGYN visit in last 3 months: Yes Hx Now: No Do You Feel Safe at Home: Yes Authorities Contacted: N/A Smoking Status Smoking Status: Never smoker Immunization / Flu Flu Vaccine in the Last 12 Months: No Flu Vaccine Exclusion Criteria: No Exclusion Criteria Past Medical History Past Medical History NEUROLOGIC: Positive Neurological Disorders (Sees Dr Fernandez), Cerebrovascular Accident (from aneurysm, has aphasia) and Subdural Hematoma (aneurysim x3, 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); Negative Seizures CARDIAC: Positive Atherosclerotic Heart Disease, Hypercholesterolemia, Aneurysm (brain x3 sites) and Hypertension; Negative Cardiac Disorders or Congestive Heart Failure RESPIRATORY: Negative Chronic Obstructive Pulmonary Disease (COPD), Asthma or Sleep Apnea GASTROINTESTINAL: Positive Gastrointestinal Disorders, Hemorrhoids and Obesity; Negative Liver Cancer or Pancreatic Cancer GENITOURINARY: Negative Genitourinary Disorders or Renal Disease REPRODUCTIVE: Positive Previous Pregnancies ENT: Negative Cataracts ENDOCRINE: Negative Endocrine Disorders, Diabetes Mellitus Type 1 or Diabetes Mellitus Type 2 HEMATOLOGIC: Negative Blood Disorders or Sickle Cell Disease OTHER HISTORY: Positive Hospitalization, Blood Transfusions, Chicken Pox and Measles; Negative Autoimmune Disease, Shingles, Falls, Blood Transfusion Reaction, Anesthesia Reactions, Mumps or Cancer Family History FAMILY HISTORY: Positive Family Cancer and Family Surgery; Negative Family Psychiatric Problems, Family Respiratory Disorders, Family Cardiac Disorders, Family Gastrointestinal Problems or Family Anesthesia Reaction Surgical History SURGICAL: Positive Cardiac Surgery, Carotid Endarterectomy (Bilateral) and Neurologic Surgery (ruptured brain aneurysm, has one clip and plate) Social History SMOKING STATUS: Smoking status: Never smoker ALCOHOL: Alcohol Intake: Never HOUSING: Housing: House LIVES WITH: Lives With: Family HPI HPI Narrative Spoke to pt and son via telephone 68F with HTN, HLD, GERD, hx of cerebral aneurysms x4 with expressive aphasia referred for symptomatic hemorrhoids s/p THD 03/07 having televisit for follow up. Per pt and son she is doing much better since last visit; she has no pain, no bleeding or itching and no longer has prolapsing hemorrhoidal tissue. Her BMs are soft and regular and she is not requiring any remedies for hemorrhoids ROS Review of Systems Systems Reviewed: All systems reviewed, normal except as documented Objective/Exam General Limitations: other (limited by televisit) Assessment & Plan Diagnosis / Problem List (1) Hemorrhoids: Status: Acute Assessment & Plan: 68F with HTN, HLD, GERD, hx of cerebral aneurysms x4 with expressive aphasia referred for symptomatic hemorrhoids s/p THD 03/07, recovering very well Plan: Follow up as needed Advanced Care Planning Advance care planning discussed with:: patient Office Procedures GNS Level of Care Nursing/Assessment Patient Status: Established Patient Nursing Assessment/Reassesment: Medication Reconciliation, Update PMH in EMR and Vital Signs Coordination of Care: Complex Care and Chronic Disease 1-5, Consent,records o btained, informed consent, Education Simp Pt/Fam and Staff clarify orders Established Patient Charge Established Patient Point Assignment: 85 Telehealth Telemed Phone/Video with patient at home & ,PA,TELECOMMUNICATIONS OPERATOR: Yes Patient Portal Questionaires Social History Living Situation History Housing: House Housing Other:: pt is alert/oriented Tobacco History Smoking Status: Never smoker Alcohol History Alcohol Intake: Never Domestic Abuse History Do You Feel Safe at Home: Yes Review of Systems Report any current symptoms Only answer those that you have currently: Past Medical History Past Medical History Have you ever been diagnosed with any of the following: Neurological Problems Cerebrovascular Accident (CVA): Yes (from aneurysm, has aphasia) Seizures: No Subdural Hematoma: Yes (aneurysim x3, 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) Cardiology Problems Atherosclerotic Heart Disease: Yes Hypercholesterolemia: Yes Aneurysm: Yes (brain x3 sites) Congestive Heart Failure: No Hypertension: Yes Respiratory Problems Chronic Obstructive Pulmonary Disease (COPD): No Asthma: No Sleep Apnea: No Stomache/Intestinal Problems Liver Cancer: No Pancreatic Cancer: No Hemorrhoids: Yes Obesity: Yes Genital/Urinary Problems Renal Disease: No Reproductive Problems Previous Pregnancies: Yes Head,Eye,Nose,Throat Problems Cataracts: No Endocrine Problems Diabetes Mellitus Type 1: No Diabetes Mellitus Type 2: No Blood Problems Sickle Cell Disease: No Other Problems Hospitalization: Yes Autoimmune Disease: No Shingles: No Falls: No Blood Transfusions: Yes Blood Transfusion Reaction: No Anesthesia Reactions: No Chicken Pox: Yes Measles: Yes Mumps: No Cancer: No Surgical History Carotid Endarterectomy: Yes (Bilateral)
== END 2024-05-28 14:05 | disposition home or self-care (01) ==
LOC: HODSRG 14:00
PROVIDERS: PCP Physician Assistant; Referring Provider Physician Assistant; Supervising Provider Surgery; Visit Provider Surgery
DX: Z48.815 Encounter for surgical aftercare following surgery on the digestive system (principal)
CPT/HCPCS: 99212; G0463

== ENCOUNTER → 2024-06-27 | Outpatient (CLI) | payer MEDICARE, MEDICAID, SELFPAY ==
[2024-06-27 13:55] LABS: Basophils # (Auto) 0.1 Thou/mm3 (0.0-0.2); Basophils % (Auto) 1 % (0-2.5); Eosinophils # (Auto) 0.1 Thou/mm3 (0.0-0.5); Eosinophils % (Auto) 2 % (0-10); Hematocrit 37.8 % (36.0-46.0); Hemoglobin 11.9 g/dL (12.0-16.0); Immature Granulocytes % (Auto) 0 % (0-0); Immature Granulocytes Auto 0.03 Thou/mm3 (0.00-0.00); Lymphocytes # (Auto) 2.3 Thou/mm3 (1.0-4.8); Lymphocytes % (Auto) 29 % (10-50); Mean Corpuscular HGB Conc 31.5 g/dl (31.0-37.0); Mean Corpuscular Hemoglobin 26.1 pg (25.0-35.0); Mean Corpuscular Volume 83 fL (80-100); Monocytes # (Auto) 0.5 Thou/mm3 (0.0-0.8); Monocytes % (Auto) 6 % (0-12); Neutrophils # (Auto) 5.1 Thou/mm3 (1.8-7.7); Neutrophils % (Auto) 63 % (37-80); Nucleated Red Blood Cell % 0 /100 WBC (0); Platelet Count 368 Thou/mm3 (140-440); RDW Standard Deviation 43.8 fL (36.4-46.3); Red Blood Count 4.56 Miln/mm3 (4.00-5.20); White Blood Count 8.1 Thou/mm3 (3.6-11.0)
[2024-06-27 14:06] LABS: B-Type Natriuretic Peptide 77 pg/mL (0-100)
[2024-06-27 14:40] LABS: Alanine Aminotransferase 57 U/L (10-49); Albumin, Serum 4.2 gm/dL (3.4-4.8); Alkaline Phosphatase 135 U/L (46-116); Anion Gap 10 (7-16); Aspartate Amino Transferase 78 U/L (0-34); BUN/Creatinine Ratio 38 Ratio (12-20); Bilirubin,Direct 0.2 mg/dL (0.0-0.3); Bilirubin,Total 0.6 mg/dL (0.3-1.2); Blood Urea Nitrogen 23 mg/dL (9-23); Calcium 9.7 mg/dL (8.3-10.6); Carbon Dioxide 26.3 mMol/L (20.0-31.0); Cardiac Risk Estimate 3.7 RATIO (3.7-5.6); Chloride 105 mMol/L (98-107); Cholesterol 169 mg/dL (132-200); Creatinine (Component) 0.6 mg/dL (0.6-1.3); Glucose 127 mg/dL (74-106); HDL Cholesterol 46 mg/dL (40-60); LDL Cholesterol,Calculated 85 mg/dL (0-130); Osmolality,Calculated 286 (275-295); Phosphorous 3.4 mg/dL (2.4-5.1); Potassium 4.6 mMol/L (3.4-5.1); Sodium 141 mMol/L (136-145); Total Protein 6.3 gm/dL (5.7-8.2); Triglycerides 191 mg/dL (30-150); eGFR > 60 See Note
== END | disposition home or self-care (01) ==
PROVIDERS: PCP Physician Assistant; Referring Provider Internal Medicine Cardiovascular Disease; Visit Provider Internal Medicine Cardiovascular Disease
DX: E78.5 Hyperlipidemia, unspecified (principal); I11.0 Hypertensive heart disease with heart failure; I50.9 Heart failure, unspecified
CPT/HCPCS: 36415; 80048; 80061; 80076; 83880; 84100; 85025

== ENCOUNTER → 2024-07-12 | Outpatient (CLI) | payer MEDICARE, MEDICAID, SELFPAY ==
--- NOTE | 2024-07-12 14:45 | XR_ITS ---
Examination: Bone densitometry Date and time of exam:July 12, 2024 at 2:52 PM Indications: Menopause age 55 vitamin D 5 years Technique: Lumbar spine and hip total bone mineralization values of an calculated. Peak reference and age match control results have been displayed. Findings: Lumbar spine total bone mineralization is0.902 gm/cm2. This is 1.3 standard deviations below peak reference. This is 0.7 standard deviations above age-matched controls. Hip total bone mineralization is 0.741 gm/cm2 This is 1.7 standard deviations below peak reference. This is 0.3 standard deviations below age-matched controls Impression: There is osteopenia based on lumbar spine measurements. There is osteoporosis based on hip measurements
== END | disposition home or self-care (01) ==
LOC: CDIM 14:31
PROVIDERS: Referring Provider Physician Assistant; Visit Provider Physician Assistant
DX: Z13.820 Encounter for screening for osteoporosis (principal); M85.88 Other specified disorders of bone density and structure, other site; M81.0 Age-related osteoporosis without current pathological fracture
CPT/HCPCS: 77080

== ENCOUNTER → 2024-08-20 | Outpatient (CLI) | payer MEDICARE, MEDICAID, SELFPAY ==
--- NOTE | 2024-08-20 14:30 | XR_ITS ---
Examination: Screening digital mammography, bilateral Computer aided detection 3-D breast Tomosynthesis, bilateral Date and time of exam: August 20, 2024 1419 hours Compared to mammograms dating to May 07, 2021 Indication: Screening, strong family history, sister breast cancer Technique: Nonmagnified MLO, CC views of the breasts to been obtained, reconstructed from 3-D Tomosynthesis images. R2 computer aided detection program utilized for evaluation of suspicious masses and/or abnormal calcifications. 3-D Tomosynthesis images obtained. Findings: Scattered areas of fibroglandular density. Breast biopsy marker upper outer right breast Grouped microcalcifications nipple level left breast No definite suspicious masses Impression: BI-RADS Category 0: Incomplete: Need additional imaging evaluation Grouped microcalcifications nipple level left breast, recommend follow-up magnification spot compression films of these calcifications as well as bilateral breast sonography to complete the workup.
--- NOTE | 2024-08-20 14:30 | XR_ITS ---
Examination: PA lateral chest 2 views TECHNIQUE: Upright PA lateral chest 2 views Exam date and time: August 20, 2024 1548 hours Comparison May 21, 2024 INDICATIONS: Chronic coughing FINDINGS: Mild prominence left ventricle Mitral valvular calcification Mild increased AP dimension chest with kyphosis dorsal spine No pneumonia or pulmonary edema Prominent osteopenia IMPRESSION: Mild prominence left ventricle No pneumonia or pulmonary edema Mild hyperexpansion
== END | disposition home or self-care (01) ==
LOC: CDIM 14:10
PROVIDERS: Referring Provider Internal Medicine; Visit Provider Physician Assistant
DX: Z12.31 Encounter for screening mammogram for malignant neoplasm of breast (principal); R92.0 Mammographic microcalcification found on diagnostic imaging of breast; Z80.3 Family history of malignant neoplasm of breast; R05.3 Chronic cough; I51.7 Cardiomegaly
CPT/HCPCS: 71046; 77063; 77067

== ENCOUNTER → 2024-09-14 | Outpatient (CLI) | payer MEDICARE, MEDICAID, SELFPAY ==
[2024-09-14 13:29] LABS: Glucose Estimated Average 148 mg/dL (80-131); Hemoglobin A1C 6.8 % Hgb (4.8-6.0)
[2024-09-14 13:33] LABS: Alanine Aminotransferase 54 U/L (10-49); Albumin, Serum 4.6 gm/dL (3.4-4.8); Alkaline Phosphatase 128 U/L (46-116); Anion Gap 10 (7-16); Aspartate Amino Transferase 91 U/L (0-34); BUN/Creatinine Ratio 23 Ratio (12-20); Bilirubin,Total 0.5 mg/dL (0.3-1.2); Blood Urea Nitrogen 18 mg/dL (9-23); Calcium 9.4 mg/dL (8.3-10.6); Calcium (Corrected) 9.4 mg/dL (8.5-10.1); Carbon Dioxide 22.7 mMol/L (20.0-31.0); Cardiac Risk Estimate 4.2 RATIO (3.7-5.6); Chloride 108 mMol/L (98-107); Cholesterol 184 mg/dL (132-200); Creatinine (Component) 0.8 mg/dL (0.6-1.3); Globulin 2.3 gm/dL (2.3-3.5); Glucose 157 mg/dL (74-106); HDL Cholesterol 44 mg/dL (40-60); LDL Cholesterol,Calculated 98 mg/dL (0-130); Osmolality,Calculated 286 (275-295); Potassium 4.4 mMol/L (3.4-5.1); Sodium 141 mMol/L (136-145); Thyroid Stimulating Hormone 0.91 uIU/mL (0.55-4.78); Total Protein 6.9 gm/dL (5.7-8.2); Triglycerides 208 mg/dL (30-150); eGFR > 60 See Note
[2024-09-14 13:49] LABS: Basophils # (Auto) 0.1 Thou/mm3 (0.0-0.2); Basophils % (Auto) 1 % (0-2.5); Eosinophils # (Auto) 0.1 Thou/mm3 (0.0-0.5); Eosinophils % (Auto) 2 % (0-10); Hematocrit 39.1 % (36.0-46.0); Hemoglobin 12.3 g/dL (12.0-16.0); Immature Granulocytes % (Auto) 0 % (0-0); Immature Granulocytes Auto 0.03 Thou/mm3 (0.00-0.00); Lymphocytes # (Auto) 2.4 Thou/mm3 (1.0-4.8); Lymphocytes % (Auto) 32 % (10-50); Mean Corpuscular HGB Conc 31.5 g/dl (31.0-37.0); Mean Corpuscular Hemoglobin 26.6 pg (25.0-35.0); Mean Corpuscular Volume 85 fL (80-100); Monocytes # (Auto) 0.4 Thou/mm3 (0.0-0.8); Monocytes % (Auto) 6 % (0-12); Neutrophils # (Auto) 4.4 Thou/mm3 (1.8-7.7); Neutrophils % (Auto) 60 % (37-80); Nucleated Red Blood Cell % 0 /100 WBC (0); Platelet Count 321 Thou/mm3 (140-440); RDW Standard Deviation 44.3 fL (36.4-46.3); Red Blood Count 4.62 Miln/mm3 (4.00-5.20); White Blood Count 7.4 Thou/mm3 (3.6-11.0)
== END | disposition home or self-care (01) ==
LOC: COPL 12:20
PROVIDERS: PCP Physician Assistant; Referring Provider Physician Assistant; Visit Provider Physician Assistant
DX: E78.5 Hyperlipidemia, unspecified (principal); I10 Essential (primary) hypertension
CPT/HCPCS: 36415; 80053; 80061; 83036; 84443; 85025

== ENCOUNTER → 2024-10-16 | Outpatient (CLI) | payer MEDICARE, MEDICAID, SELFPAY ==
--- NOTE | 2024-10-16 | XR_ITS ---
Examination: Diagnostic digital mammography, unilateral, left Computer aided detection 3-D breast Tomosynthesis, unilateral Date and time of exam: October 16, 2024 1508 hours INDICATIONS: Mammogram August 20, 2024 grouped microcalcifications left breast nipple level Technique: Nonmagnified MLO, CC views of the left breast have been obtained, reconstructed from 3-D Tomosynthesis images. R2 computer aided detection program utilized for evaluation of suspicious masses and/or abnormal calcifications. 3-D Tomosynthesis images obtained. Findings: Scattered areas of fibroglandular density. Suspicious microcalcifications are confirmed left breast nipple level Impression: BI-RADS category 4: Suspicious for malignancy Suspicious microcalcifications confirmed nipple level left breast, biopsy needed to exclude breast carcinoma, these calcifications are amenable to stereotactic breast biopsy for diagnosis
--- NOTE | 2024-10-16 14:30 | XR_ITS ---
Examination: Breast ultrasound complete, bilateral Date and time of exam: October 16, 2024 1426 hours INDICATIONS: Mammogram August 20, 2024 grouped microcalcifications nipple level left breast Technique: Real-time grayscale ultrasonographic imaging bilateral breasts, including all 4 quadrants as well as nipple retroareolar and axillary regions. Findings: Sonographic images right and left breast demonstrated no cystic or solid masses IMPRESSION: BI-RADS Category 1: Negative study
== END | disposition home or self-care (01) ==
PROVIDERS: PCP Physician Assistant; Referring Provider Physician Assistant; Visit Provider Physician Assistant
DX: R92.0 Mammographic microcalcification found on diagnostic imaging of breast (principal); R92.322 Mammographic fibroglandular density, left breast
CPT/HCPCS: 76641; 77061; 77065; G0279

== ENCOUNTER → 2024-11-29 | Outpatient (CLI) | payer MEDICARE, MEDICAID, SELFPAY ==
[2024-11-28 15:19] LABS: Basophils # (Auto) 0.1 Thou/mm3 (0.0-0.2); Basophils % (Auto) 1 % (0-2.5); Eosinophils # (Auto) 0.1 Thou/mm3 (0.0-0.5); Eosinophils % (Auto) 2 % (0-10); Hematocrit 38.7 % (36.0-46.0); Hemoglobin 11.9 g/dL (12.0-16.0); Immature Granulocytes Auto 0.02 Thou/mm3 (0.00-0.00); Lymphocytes # (Auto) 2.4 Thou/mm3 (1.0-4.8); Lymphocytes % (Auto) 35 % (10-50); Mean Corpuscular HGB Conc 30.7 g/dl (31.0-37.0); Mean Corpuscular Hemoglobin 27.0 pg (25.0-35.0); Mean Corpuscular Volume 88 fL (80-100); Monocytes # (Auto) 0.4 Thou/mm3 (0.0-0.8); Monocytes % (Auto) 6 % (0-12); Neutrophils # (Auto) 3.9 Thou/mm3 (1.8-7.7); Neutrophils % (Auto) 56 % (37-80); Nucleated Red Blood Cell # 0.00 Thou/mm3 (0.00-0.00); Nucleated Red Blood Cell % 0 /100 WBC (0); Platelet Count 352 Thou/mm3 (140-440); RDW Standard Deviation 49.0 fL (36.4-46.3); Red Blood Count 4.41 Miln/mm3 (4.00-5.20); White Blood Count 7.0 Thou/mm3 (3.6-11.0)
[2024-11-28 15:27] LABS: INR 1.0 (0.9-1.3); Partial Thromboplastin Time 27.5 Seconds (22.0-36.0); Prothrombin Time 11.4 Seconds (9.0-12.2)
--- NOTE | 2024-11-29 08:30 | XR_ITS ---
Examination: Stereotactic guided vacuum assisted left breast biopsy with clip placement Specimen radiograph Date and time of exam:November 29, 2024 0950 hours INDICATIONS: Mammogram October 16, 2024 BI-RADS 4 suspicious microcalcifications nipple level left breast Timeout performed, documenting correct patient, order, referring physician, patient's site and reason for procedure, allergies to medications Informed consent provided. Time out performed Technique: The lesion left breast was localized with a stereotactic apparatus. Local anesthesia was obtained after prepping the skin at the entrance site and applying sterile drape Maximum sterile barrier technique. 4 core biopsies were then obtained, vacuum assisted, stereotactically guided, at the lesion site. Specimens appear adequate. Stereotactic breast marker was introduced at the lesion site Estimated blood loss 2 cc. Patient tolerated the procedure well and appeared in satisfactory and stable condition at completion of the procedure Pathology report to follow Impression: Successful stereotactic breast biopsy as described above. Specimen radiograph contains the biopsied suspicious microcalcifications.
== END | disposition home or self-care (01) ==
LOC: CDIM 11-30 07:18
PROVIDERS: Radiology Diagnostic Radiology; PCP Physician Assistant; Referring Provider Physician Assistant; Visit Provider Physician Assistant
DX: D24.2 Benign neoplasm of left breast (principal); R92.1 Mammographic calcification found on diagnostic imaging of breast; N62 Hypertrophy of breast; Z01.812 Encounter for preprocedural laboratory examination
CPT/HCPCS: 19081; 36415; 85025; 85610; 85730; A4648; A4649

== ENCOUNTER → 2024-12-03 | Outpatient (CLI) | payer MEDICARE, MEDICAID, SELFPAY ==
--- NOTE | 2024-12-03 15:30 | XR_ITS ---
Examination: Transvaginal ultrasound of the pelvis, complete Technique: Transvaginal sonographic images pelvis performed using winn scale imaging Exam date and time: December 03, 2024 1538 hours INDICATIONS: Hyperechoic solid mass 2.0 cm in the pelvis on pelvic sonogram May 15, 2024 FINDINGS: Uterus 6.8 cm endometrial stripe 0.4 cm 18 mm likely calcified fibroid degeneration in the posterior uterine body Right ovary 2.0 cm arterial flow, 2.3 x 1.7 x 2.3 cm hypoechoic mass superior to the right ovary Left ovary obscured by bowel gas IMPRESSION: Right ovarian mass 2.3 x 1.7 x 2.3 cm, recommend MRI pelvis follow-up pre and postcontrast
== END | disposition home or self-care (01) ==
PROVIDERS: PCP Physician Assistant; Referring Provider Obstetrics & Gynecology; Visit Provider Obstetrics & Gynecology
DX: N83.8 Other noninflammatory disorders of ovary, fallopian tube and broad ligament (principal)
CPT/HCPCS: 76830

== ENCOUNTER → 2024-12-07 | Outpatient (CLI) | payer MEDICARE, MEDICAID, SELFPAY ==
[2024-12-07 12:47] LABS: Alanine Aminotransferase 38 U/L (10-49); Albumin, Serum 4.6 gm/dL (3.4-4.8); Alkaline Phosphatase 104 U/L (46-116); Aspartate Amino Transferase 88 U/L (0-34); Bilirubin,Direct 0.2 mg/dL (0.0-0.3); Bilirubin,Total 0.6 mg/dL (0.3-1.2); Cardiac Risk Estimate 3.8 RATIO (3.7-5.6); Cholesterol 175 mg/dL (132-200); HDL Cholesterol 46 mg/dL (40-60); LDL Cholesterol,Calculated 95 mg/dL (0-130); Total Protein 7.2 gm/dL (5.7-8.2); Triglycerides 169 mg/dL (30-150)
== END | disposition home or self-care (01) ==
LOC: COPL 10:53
PROVIDERS: PCP Physician Assistant; Referring Provider Internal Medicine Cardiovascular Disease; Visit Provider Internal Medicine Cardiovascular Disease
DX: I25.10 Atherosclerotic heart disease of native coronary artery without angina pectoris (principal)
CPT/HCPCS: 36415; 80061; 80076

== ENCOUNTER → 2025-03-29 | Outpatient (CLI) | payer MEDICARE, MEDICAID, SELFPAY ==
[2025-03-29 12:53] LABS: Glucose Estimated Average 143 mg/dL (80-131); Hemoglobin A1C 6.6 % Hgb (4.8-6.0)
[2025-03-29 13:10] LABS: Alanine Aminotransferase 40 U/L (10-49); Albumin, Serum 4.4 gm/dL (3.4-4.8); Albumin/Globulin Ratio 2.2 (1.2-2.2); Alkaline Phosphatase 117 U/L (46-116); Anion Gap 10 (7-16); Aspartate Amino Transferase 57 U/L (0-34); BUN/Creatinine Ratio 23 Ratio (12-20); Bilirubin,Total 0.7 mg/dL (0.3-1.2); Blood Urea Nitrogen 16 mg/dL (9-23); Calcium 9.1 mg/dL (8.3-10.6); Calcium (Corrected) 9.1 mg/dL (8.5-10.1); Carbon Dioxide 24.9 mMol/L (20.0-31.0); Chloride 108 mMol/L (98-107); Creatinine (Component) 0.7 mg/dL (0.6-1.3); Globulin 2.0 gm/dL (2.3-3.5); Glucose 135 mg/dL (74-106); Osmolality,Calculated 288 (275-295); Potassium 3.8 mMol/L (3.4-5.1); Sodium 143 mMol/L (136-145); Total Protein 6.4 gm/dL (5.7-8.2); eGFR > 60 See Note
== END | disposition home or self-care (01) ==
LOC: COPL 12:08
PROVIDERS: PCP Physician Assistant; Referring Provider Physician Assistant; Visit Provider Physician Assistant
DX: R73.03 Prediabetes (principal)
CPT/HCPCS: 36415; 80053; 83036